=== PATIENT | female | born 1970 | race Caucasian/White ===

== ENCOUNTER 2021-10-26 12:57 | Emergency (ER) | payer MEDICAID ==
--- NOTE | 2021-10-26 13:05 | ED Physician Documentation ---
PD HPI URI - Stated complaint Stated Complaint: CHEST PX,COUGH - History obtained from History obtained from: Patient
--- NOTE | 2021-10-26 13:14 | ED Physician Documentation ---
PD HPI DYSPNEA - Stated complaint Stated Complaint: CHEST PX,COUGH - Chief complaint Chief Complaint: Resp - History obtained from History obtained from: Patient - Additional information Additional information: 51-year-old woman with type 2 diabetes, tobacco abuse and hypertension was diagnosed with Covid about 2 weeks ago. She remains symptomatic but the fevers and chills are gone, but and it continues to have a severe cough but this morning has right upper back pain associated with more shortness of breath. Denies pedal edema or calf pain. Review of Systems Ten Systems: 10 systems reviewed and negative Constitutional: denies: Fever, Chills Nose: denies: Rhinorrhea / runny nose Cardiac: denies: Chest pain / pressure, Palpitations Respiratory: reports: Dyspnea, Cough PD PAST MEDICAL HISTORY - Present Medications Home Medications: Ambulatory Orders Medication Instructions Recorded Confirmed Benzonatate [Tessalon] 200 mg PO QID PRN #20 cap 10/26/21 Meloxicam [Mobic] 7.5 mg PO BID PRN #20 tablet 10/26/21 - Allergies Allergies/Adverse Reactions: Allergies Allergy/AdvReac Type Severity Reaction Status Date / Time acetaminophen [From Percocet] AdvReac Emesis Verified 10/26/21 13:06 oxycodone [From Percocet] AdvReac Emesis Verified 10/26/21 13:06 PD ED PE NORMAL - Vitals Vital signs reviewed: Yes - General General: Alert and oriented X 3, Other (frequent cough) - HEENT HEENT: Pharynx benign - Neck Neck: Supple, no meningeal sign, No bony TTP - Cardiac Cardiac: RRR, No murmur - Respiratory Respiratory: No respiratory distress, Clear bilaterally - Abdomen Abdomen: Normal bowel sounds, Soft, Non tender - Back Back: No CVA TTP, No spinal TTP - Derm Derm: Normal color, Warm and dry - Extremities Extremities: No tenderness to palpate - Neuro Neuro: Alert and oriented X 3, Normal speech Results - Vitals Vitals: Vital Signs - 24 hr 10/26/21 10/26/21 13:00 13:05 Temperature 36.6 C Heart Rate 105 H 94 Respiratory 16 22 Rate Blood Pressure 133/91 H O2 Saturation 94 99 Oxygen O2 Source Room air - EKG (time done) 1514 Rate: Rate (enter#) (81) Rhythm: NSR [place]: Normal Intervals: Normal TN QRS: Low voltage Ischemia: Normal ST segments - Labs Labs: Laboratory Tests 10/26/21 13:22 Sodium 139 Potassium 3.8 Chloride 104 Carbon Dioxide 26 Anion Gap 9.0 BUN 8 Creatinine 0.7 Estimated GFR (MDRD) 89 Glucose 153 H Calcium 8.6 PD MEDICAL DECISION MAKING - ED course ED course: 51-year-old woman with recent COVID with persisting cough and more shortness of breath and right upper back pain today. This is concerning for a post Covid pneumonia versus PE which was assessed for with a CT pulmonary angiogram Interpreted contemporaneously by me which was negative except for a 3 mm Left upper lobe nodule. Follow-up was discussed for this. Departure - Departure Disposition: Home, Self Care Clinical Impression: Cough, Pulmonary nodule Condition: Good Record reviewed to determine appropriate education?: Yes Instructions: ED Viral Syndrome Follow-Up: [facility] [place] [Provider Group] [facility] [Provider Group] Prescriptions: Meloxicam [Mobic] 7.5 mg PO BID PRN #20 tablet PRN Reason: Pain Benzonatate [Tessalon] 200 mg PO QID PRN #20 cap PRN Reason: Cough Comments: As discussed, you do have a 3 mm left upper lobe nodule. Since you are a smoker, you will need a CT scan in 12 months to reassess this. Return for new or worsening symptoms. I sent your prescriptions electronically to [facility] in [place]. Also you will need to set up with a primary care physician, several are listed on this form for your consideration.
[2021-10-26 13:36] LABS: CALCIUM 8.6 mg/dL (8.5-10.3); CREATININE 0.7 mg/dL (0.4-1.0); POTASSIUM 3.8 mmol/L (3.5-5.0)
[2021-10-26] MEDS: BENZONATATE 100 MG CAPSULE PO STA (13:45)
[2021-10-26] MEDS ORDERED: iohexoL-300 100 ML VIAL ONE (14:16)
[2021-10-26] MEDS: iohexoL-300 100 ML VIAL IVP ONE (15:21)
--- NOTE | 2021-10-26 15:39 | CT Report ---
PROCEDURE: ANGIO CHEST W/WO INDICATIONS: dyspnea, back pain, recent covid, pe protocol CONTRAST: IV CONTRAST: Isovue 300 ml: 100 PO CONTRAST: *NO PO CONTRAST TECHNIQUE: After the administration of intravenous contrast, 2 mm axial images were acquired from the pulmonary apices to the posterior costophrenic angles during the arterial phase. In addition, 1 mm lung kernel and 5 mm soft tissue kernel reconstructions were performed. 3-dimensional coronal oblique maximum int ensity projection (MIP) reformats, 8 mm axial MIP, and 5 mm coronal and sagittal MPR reformats were t hen performed through the thorax. For radiation dose reduction, the following was used: automated exp osure control, adjustment of mA and/or kV according to patient size. COMPARISON: None FINDINGS: Image quality: Excellent. Pulmonary arteries: Pulmonary arteries are normal in size, and demonstrate no intraluminal filling d efects to suggest central pulmonary embolism. Lungs and pleura: No evidence of pneumonia nor edema. 3 mm nodule within the left upper lobe anterome dially (series 6 image 60). No pleural effusions or pneumothorax. Central and peripheral airways are patent. Mediastinum: Heart size is normal, without pericardial effusion. No mediastinal or hilar adenopathy . Thoracic aorta is normal in caliber and enhancement. Esophagus is normal in caliber, without hiat al hernia. Bones and chest wall: No suspicious bony lesions. Ribs and thoracic spine appear intact throughout. No axillary or supraclavicular adenopathy. The thyroid is normal in size and there are no incident al findings. Abdomen: Visualized upper abdominal solid organs appear normal in the early arterial phase of enhanc ement. IMPRESSION: 1. No pulmonary embolus. 2. Left upper lobe pulmonary nodule. Follow-up is recommended as below. Solid nodules Solitary nodule size: <6 mm *low risk patients: no follow-up needed *high risk patients: optional CT at 12 months Reviewed by: Keysha Scanlon MD on 10/26/2021 3:38 PM PST Approved by: Keysha Scanlon MD on 10/26/2021 3:38 PM PST Station ID: [id number]
[2021-10-26 16:07] VITALS: BP 148/88
== END 2021-10-26 16:05 | disposition home or self-care (01) ==
LOC: ED 12:57
DX: U07.1 COVID-19 (principal); R91.1 Solitary pulmonary nodule
CPT/HCPCS: 36415; 71275; 80048; 93005; 99283; 99284; A9270; Q9967

== ENCOUNTER 2023-02-03 13:29 | Emergency (ER) | payer MEDICAID, OTHER ==
--- NOTE | 2023-02-03 13:59 | ED Physician Documentation ---
PD HPI WOUND RECHECK - Stated complaint Stated Complaint: POST SURG PX - Chief complaint Chief Complaint: Wound - Histroy obtained from History obtained from: Patient - Additional information Additional information: Postop day 4 from a breast reduction done at [facility]. She is having trouble with wound care and dressing changes. A lot of drainage from the sites and MARCO A drains are not draining well. She denies fevers. Pain is currently uncontrolled but that is because she did not take hydrocodone because she had to drive here. PD PAST MEDICAL HISTORY - Past Medical History Cardiovascular: High cholesterol Endocrine/Autoimmune: Type 1 diabetes Psych: Anxiety - Past Surgical History Past Surgical History: Yes Ortho: Carpal Tunnel surgery /BARKEEP: Hysterectomy - Present Medications Home Medications: Ambulatory Orders Medication Instructions Recorded Confirmed Atorvastatin [Lipitor] 10 mg PO DAILY 03/03/22 03/03/22 Liraglutide [Victoza 2-Jr] 1.6 mg SUBQ DAILY 03/03/22 03/03/22 Oxycodone HCl/Acetaminophen 1 - 2 each PO Q6H PRN #14 tablet 03/03/22 [Percocet 5-325 mg Tablet] hydroCHLOROthiazide [Hydrodiuril] 12.5 mg PO DAILY 03/03/22 03/03/22 - Allergies Allergies/Adverse Reactions: Allergies Allergy/AdvReac Type Severity Reaction Status Date / Time acetaminophen [From Percocet] AdvReac Emesis Verified 03/11/22 13:26 oxycodone [From Percocet] AdvReac Emesis Verified 03/11/22 13:26 - Social History Does the pt smoke?: Yes Smoking Status: Current every day smoker Does the pt drink ETOH?: Yes Does the pt have substance abuse?: Yes - Immunizations Immunizations are current?: No Immunizations: TDAP >10years/unknown - POLST Patient has POLST: No PD ED PE NORMAL - Vitals Vital signs reviewed: Yes - General General: Alert and oriented X 3, Other (Tearful) - Extremities Extremities: Other (Exam done with Rosanne HARPER. Bilateral MARCO A drains in place with minimal fluid. Fullness of both breast, hard to say if there could be seromas versus just postoperative swelling. She had a bra on that was far too tight and actually has abraded the skin.) - Neuro Neuro: Alert and oriented X 3, Normal speech Results - Vitals Vitals: Vital Signs - 24 hr 02/03/23 02/03/23 13:48 13:51 Temperature 36.8 C 36.8 C Heart Rate 101 H 101 H Respiratory 20 20 Rate Blood Pressure 150/81 H 150/81 H O2 Saturation 96 96 Oxygen O2 Source Room air PD Medical Decision Making - ED course ED course: She is having a lot of pain and swelling after a breast reduction. On initial exam it appeared that at least a significant part of her pain was from a very very tight postop bra she was wearing that actually abraded into the skin. Re commend she discontinue this. For concern for seroma and nondraining MARCO A drains an ultrasound was done and preliminarily negative for fluid collection. Departure - Departure Disposition: 01 Home, Self Care Clinical Impression: Breast pain in female Condition: Good Record reviewed to determine appropriate education?: Yes Instructions: Wound Care Dc Comments: We did an ultrasound of both breasts today, there is no large fluid collection i.e. no seroma or abscess. Follow-up with your surgeon tomorrow as scheduled for wound check and drain removal. Return for new or worsening symptoms. Recommend not wearing the very tight bra you are wearing as we suspect that was causing some of your pain as well.
[2023-02-03] MEDS ORDERED: KETOROLAC 60 MG/2 ML VIAL IM STA (14:03)
[2023-02-03 14:52] VITALS: BP 130/80
--- NOTE | 2023-02-03 15:28 | Ultrasound Report ---
PROCEDURE: Breast Osman Limited INDICATIONS: Breast swelling, post reduction, ? fluid TECHNIQUE: Multiple grayscale and color Doppler imaging of the breast. COMPARISON: None. FINDINGS: Note this exam is for an emergent purposes only and does not reflect screening or diagnostic evaluati on for breast cancer. If there is concern for breast cancer recommend dedicated mammograms No fluid collection identified within the 4 quadrants of the bilateral breasts. IMPRESSION: No fluid collection. Reviewed by: Mark Valenzuela MD on 02/03/2023 2:27 PM MAGAN Approved by: Mark Valenzuela MD on 02/03/2023 2:27 PM AKМАРИНА Station ID: [id number]
== END 2023-02-03 14:49 | disposition home or self-care (01) ==
LOC: ED 13:29
DX: G89.18 Other acute postprocedural pain (principal); N64.4 Mastodynia; E10.9 Type 1 diabetes mellitus without complications; F17.200 Nicotine dependence, unspecified, uncomplicated
CPT/HCPCS: 96372; 99282; 99284

== ENCOUNTER 2023-11-28 08:54 | Outpatient (CLI) | payer MEDICAID | END 2023-11-28 23:59 | disposition critical access hospital (66) | LOC: EMS 08:54 | DX: R11.2 Nausea with vomiting, unspecified (principal); R19.7 Diarrhea, unspecified; M54.50 Low back pain, unspecified; R53.1 Weakness; R53.83 Other fatigue; E86.0 Dehydration | CPT/HCPCS: A0425; A0427; A0999 ==

== ENCOUNTER 2023-11-28 09:07 | Emergency (ER) | payer MEDICAID, OTHER ==
--- NOTE | 2023-11-28 09:30 | ED Physician Documentation ---
PD HPI NVD - Stated complaint Stated Complaint: N/V/D - Chief complaint Chief Complaint: Abd Pain - History obtained from History obtained from: Patient - History of Present Illness Timing - onset: How many weeks ago (3) Timing - duration: Weeks (3) Timing - details: Gradual onset, Still present, Waxing and waning Associated symptoms: Abdominal pain (cramping lower, more to left.), Loss of appetite, Other (diarrhea frequently). No: Fever, Dysuria Contributing factors: No: Sick contact, Bad food, Travel, Recent antibiotics Similar symptoms before: Diagnosis (has had diverticulitis in the past, with not so much diarrhea. No recent change foods, travel, abx.) Recently seen: Not recently seen Review of Systems Constitutional: denies: Fever, Chills Nose: denies: Rhinorrhea / runny nose, Congestion Throat: denies: Sore throat Respiratory: denies: Cough : denies: Dysuria PD PAST MEDICAL HISTORY - Past Medical History Past Medical History: Yes Cardiovascular: High cholesterol Respiratory: COPD Endocrine/Autoimmune: Type 1 diabetes GI: Diverticulitis Psych: Anxiety - Past Surgical History Past Surgical History: Yes Ortho: Carpal Tunnel surgery /[employer] MACHINE: Hysterectomy - Present Medications Home Medications: Ambulatory Orders Medication Instructions Recorded Confirmed Amox/Clav 875/125 [Augmentin] 1 each PO Q12H #10 tablet 11/28/23 Atorvastatin [Lipitor] 10 mg PO HS 11/28/23 11/28/23 Cyclobenzaprine [Flexeril] 10 mg PO TID PRN 11/28/23 11/28/23 Empagliflozin [Jardiance] 25 mg PO DAILY 11/28/23 11/28/23 HYDROcod/ACETAM 5/325 [[place] 5/325] 1 ea PO Q6H PRN #15 tablet 11/28/23 L.acid/L.casei/B.bif/B.josefina/Fos 1 each PO TID 7 Days #20 cap 11/28/23 [Probiotic Blend Capsule] Levothyroxine Sodium 50 mcg PO DAILY 11/28/23 11/28/23 [Levothyroxine] Ondansetron Odt [Zofran] 4 mg TL Q6H PRN #10 tablet 11/28/23 Ondansetron [Ondansetron Odt] 8 mg PO Q8HR 11/28/23 11/28/23 Pantoprazole [Protonix] 40 mg PO DAILY 11/28/23 11/28/23 Trazodone HCl 150 mg PO HS 11/28/23 11/28/23 hydroCHLOROthiazide [Hydrodiuril] 12.5 mg PO DAILY 11/28/23 11/28/23 metFORMIN [Glucophage] 500 mg PO BIDWM 11/28/23 11/28/23 - Allergies Allergies/Adverse Reactions: Allergies Allergy/AdvReac Type Severity Reaction Status Date / Time acetaminophen [From Percocet] AdvReac Emesis Verified 03/11/22 13:26 codeine AdvReac Emesis Verified 11/28/23 09:16 oxycodone [From Percocet] AdvReac Emesis Verified 03/11/22 13:26 - Social History Does the pt smoke?: Yes Smoking Status: Current every day smoker Does the pt drink ETOH?: Yes Does the pt have substance abuse?: Yes Substance Use and Type: Marijuana - Immunizations Immunizations are current?: No Immunizations: TDAP >10years/unknown - POLST Patient has POLST: No PD ED PE NORMAL - Vitals Vital signs reviewed: Yes - General General: Alert and oriented X 3, No acute distress, Well developed/nourished - Cardiac Cardiac: RRR, No murmur - Respiratory Respiratory: Clear bilaterally - Abdomen Abdomen: Normal bowel sounds, Soft, Non distended, No organomegaly, Other (tender without guarding nor percussion tender in lower to left abd. No peritoneal signs. ) - Female Female : Deferred - Rectal Rectal: Deferred - Back Back: No CVA TTP - Derm Derm: Normal color, Warm and dry Results - Vitals Vitals: Oxygen O2 Source Room air - Labs Labs: Laboratory Tests 11/28/23 11/28/23 11/28/23 10:11 10:11 10:20 WBC 6.9 RBC 4.44 Hgb 13.5 Hct 41.0 MCV 92.3 MCH 30.4 MCHC 32.9 RDW 12.5 Plt Count 204 MPV 9.8 Neut # (Auto) 4.8 Lymph # (Auto) 1.5 Grant # (Auto) 0.4 Eos # (Auto) 0.1 Baso # (Auto) 0.0 Absolute Nucleated RBC 0.00 Nucleated RBC % 0.0 Sodium 139 Potassium 3.8 Chloride 105 Carbon Dioxide 28 Anion Gap 6.0 BUN 15 Creatinine 0.8 Estimated GFR (MDRD) 75 L Glucose 102 Calcium 8.9 Phosphorus 3.3 Magnesium 1.6 L Total Bilirubin 0.6 AST 13 ALT 10 Alkaline Phosphatase 47 Total Protein 6.4 Albumin 4.1 Globulin 2.3 Albumin/Globulin Ratio 1.8 Lipase 14 TSH 2.41 Urine Color YELLOW Urine Clarity CLEAR Urine pH 6.0 Ur Specific Hardy 1.015 Urine Protein NEGATIVE Urine Glucose (UA) >=1000 H Urine Ketones NEGATIVE Urine Occult Blood NEGATIVE Urine Nitrite NEGATIVE Urine Bilirubin NEGATIVE Urine Urobilinogen 0.2 (NORMAL) Ur Leukocyte Esterase NEGATIVE Ur Microscopic Review NOT INDICATED Urine Culture Comments NOT INDICATED Urine HCG, Qual NEGATIVE PD Medical Decision Making - ED course Complexity details: reviewed results (normal WBC and chemistry panel. Negative UA. reviewd by me. Nonfocal tenderness and not in RLQ. considered CT but pt opted not. Wanted stool study but pt did not have BM while here. ), considered differential (cramps and diarrhea for 3 weeks, worsening. Wanted to test c.diff and stool culture but she did not have BM while here. Told to collect some if persistent. Was to get CT but was a little wait for scanner and she opted not. Can presume possible colitis/diverticulitis and treat that way. ), d/w patient Departure - Departure Disposition: 01 Home, Self Care Clinical Impression: Nausea vomiting and diarrhea Abdominal pain Qualifiers: Abdominal location: periumbilical Qualified Code(s): R10.33 - Periumbilical pain Condition: Stable Record reviewed to determine appropriate education?: Yes Follow-Up: SIDDHARTH HANSON DO [Primary Care Provider] - Prescriptions: Amox/Clav 875/125 [Augmentin] 1 each PO Q12H #10 tablet HYDROcod/ACETAM 5/325 [[place] 5/325] 1 ea PO Q6H PRN #15 tablet PRN Reason: Pain L.acid/L.casei/B.bif/B.josefina/Fos [Probiotic Blend Capsule] 1 each PO TID 7 Days #20 cap Ondansetron Odt [Zofran] 4 mg TL Q6H PRN #10 tablet PRN Reason: Nausea / Vomiting Comments: Your basic blood count and chemistry panel are within normal. Given the abdominal pains and diarrhea, it could be good to look at a stool sample for particular infections. However this does have the sound of possibly diverticulitis/colitis. We can treat it that way initially with a combination of ondansetron for nausea and hydrocodone or Tylenol if needed for pains in combination with Augmentin antibiotic and probiotics. This would be treatment for bacterial colitis/diverticulitis. However would not cover all potential germs. If you have not had good improvement over the next 2 to 3 days and resolved by 3 to 5 days and in particular consistent diarrhea, then we would want to do some stool studies for other bacterial causes and potentially add a CT scan as well. I sent your prescriptions to [facility] pharmacy. They pharmacy there was not receiving electronic prescriptions for some reason at this time so I printed them out for you. When you bring them there tell the pharmacy that the electronic prescribing to their pharmacy was not working. Recheck if not improving well over the next few days and return if worse. I am prescribing a short course of narcotic pain medication for you. These are potentially dangerous and addictive medications that should be used carefully. These medications may constipate you. Take an [id number] stool softener such as docusate twice daily with plenty of water while taking these medications. If you go 24 hours without a bowel movement, take [id number] MiraLAX, per package instructions. Do not drink or drive while taking these medications. If you received narcotic or sedating medications while in the emergency departme nt do not drive for 24 hours. Store this medication in a safe, secure place and out of reach of children. It is a violation of federal law to give or sell this medication to another person or to use in a manner other than prescribed. The ED will not refill narcotic prescriptions, including prescriptions lost or stolen. You can dispose of unwanted medications at the [facility]'s office or at several pharmacies such as [facility]. Forms: PCP List Discharge Date/Time: 11/28/23 13:00
[2023-11-28] MEDS: SODIUM CHLORIDE 0.9% 1,000 ML IV STA (09:59)
[2023-11-28] MEDS: KETOROLAC 15 MG/ML VIAL IVP STA (10:01)
[2023-11-28] MEDS: DROPERIDOL 5 MG/2 ML VIAL IVP STA (10:08)
[2023-11-28 10:14] LABS: BASOPHILS % (AUTO) 0.1 %; EOSINOPHILS # (AUTO) 0.1 10^3/uL (0.0-0.7); HGB - HEMOGLOBIN 13.5 g/dL (12.0-16.0); LYMPHOCYTES # (AUTO) 1.5 10^3/uL (1.5-3.5); LYMPHOCYTES % (AUTO) 21.1 %; MEAN CORPUSCULAR HEMOGLOBIN 30.4 pg (27.0-31.0); MEAN CORPUSCULAR HGB CONC 32.9 g/dL (32.0-36.0); MEAN CORPUSCULAR VOLUME 92.3 fL (81.0-99.0); MEAN PLATELET VOLUME 9.8 fL (7.9-10.8); MONOCYTES # (AUTO) 0.4 10^3/uL (0.0-1.0); MONOCYTES % (AUTO) 6.4 %; NEUTROPHILS # (AUTO) 4.8 10^3/uL (1.5-6.6); PLT - PLATELET COUNT 204 10^3/uL (130-450); RED BLOOD COUNT 4.44 10^6/uL (4.20-5.40); RED CELL DISTRIBUTION WIDTH 12.5 % (12.0-15.0); WHITE BLOOD COUNT 6.9 x10^3/uL (4.8-10.8)
[2023-11-28 10:28] LABS: ALBUMIN 4.1 g/dL (3.2-5.5); ALBUMIN/GLOBULIN RATIO 1.8 (1.0-2.2); BILIRUBIN,TOTAL 0.6 mg/dL (0.2-1.0); CALCIUM 8.9 mg/dL (8.5-10.3); CREATININE 0.8 mg/dL (0.6-1.3); MAGNESIUM 1.6 mg/dL (1.7-2.3); PHOSPHORUS 3.3 mg/dL (2.5-5.0); POTASSIUM 3.8 mmol/L (3.5-4.5); TOTAL PROTEIN 6.4 g/dL (6.4-8.9)
[2023-11-28 10:30] LABS: BILIRUBIN,URINE NEGATIVE (NEGATIVE); GLUCOSE, URINE (UA) >=1000 mg/dL (NEGATIVE); KETONES,URINE (UA) NEGATIVE (NEGATIVE); LEUKOCYTE ESTERASE, URINE NEGATIVE (NEGATIVE); NITRITE,URINE NEGATIVE (NEGATIVE); OCCULT BLOOD,URINE NEGATIVE (NEGATIVE); PROTEIN,URINE NEGATIVE (NEGATIVE); UROBILINOGEN,URINE 0.2 (NORMAL) E.U./dL (NORMAL)
[2023-11-28 10:32] LABS: CLARITY,URINE CLEAR (CLEAR); HCG UR QUAL NEGATIVE
[2023-11-28 10:43] LABS: THYROID STIMULATING HORMONE 2.41 uIU/mL (0.34-5.60)
[2023-11-28] MEDS: diphenhydrAMINE INJ 50 MG/ML VIAL IVP STA (12:18)
[2023-11-28] MEDS: LORazepam 2 MG/ML VIAL IVP STA (12:22)
[2023-11-28] MEDS: AMOX/CLAV 875 MG/125 MG TABLET PO STA (12:23)
[2023-11-28 12:40] VITALS: O2SAT 98
[2023-11-28 12:59] VITALS: BP 110/67
== END 2023-11-28 13:00 | disposition home or self-care (01) ==
LOC: EDBD → EDUNIT# → ED 09:07
DX: R10.33 Periumbilical pain (principal); R11.2 Nausea with vomiting, unspecified; R19.7 Diarrhea, unspecified; E78.00 Pure hypercholesterolemia, unspecified; J44.9 Chronic obstructive pulmonary disease, unspecified; E10.9 Type 1 diabetes mellitus without complications; Z79.84 Long term (current) use of oral hypoglycemic drugs; Z79.899 Other long term (current) drug therapy; Z87.19 Personal history of other diseases of the digestive system; F17.200 Nicotine dependence, unspecified, uncomplicated
CPT/HCPCS: 36415; 80053; 81003; 81025; 83690; 83735; 84100; 84443; 85025; 96361; 96374; 96375; 99283; A9270; J1200; J2060; 81001; 87086; 87507